=== PATIENT | female | born 1950 | race Caucasian/White ===

== ENCOUNTER 2021-08-11 14:51 | Emergency (ER) | payer MEDICARE, SELFPAY ==
[2021-08-11 15:00] VITALS: BP 141/72; PULSE 55; RESP 18; TEMP 36.7; O2SAT 98
--- NOTE | 2021-08-11 15:24 | PC.NURSE ---
1500 following registration, prior to triage, pt states her spanish tutor instructed her to be seen related to taking to many heart meds yesterday and asks if she should go to the er. nurse informed provider would see and evaluate her and send her to er for further evaluation if needed. informed we do not do lab work, but provider could order ekg/teletypesetter monitor as needed. pt states she does not need those services because she is much better today. pt states she does not want to be seen at this time, but will go to er if dizziness, occurring yesterday, recurs. pt departed with friend. observed cheerful, steady on feet in no distress.
== END 2021-08-11 15:00 | disposition home or self-care (01) ==
LOC: EXPBETH 14:57
PROVIDERS: Emergency Provider Registered Nurse; PCP Family Medicine
DX: Z53.21 Procedure and treatment not carried out due to patient leaving prior to being seen by health care provider (principal)
CPT/HCPCS: 99199